=== PATIENT | male | born 1945 | race Caucasian/White ===

== ENCOUNTER → 2017-10-20 | Day surgery (SDC) | payer MEDICARE ==
[2017-10-18 13:22] LABS: BASOPHILS % 0.4 % (0.0-1.0); HEMATOCRIT 30.2 % (38.2-49.6); HEMOGLOBIN 10.6 g/dL (14.0-18.0); LYMPHOCYTES # (AUTO) 0.5 (1.0-3.2); LYMPHOCYTES % 18.1 % (18.0-39.1); MEAN CORPUSCULAR HEMOGLOBIN 34.5 pg (28-32); MEAN CORPUSCULAR HGB CONC 35.1 g/dL (31-35); MEAN CORPUSCULAR VOLUME 98.4 fL (81-99); MONOCYTES # (AUTO) 0.4 (0.2-0.8); MONOCYTES % 15.1 % (4.4-11.3); NEUTROPHILS # (AUTO) 1.8 (2.1-6.9); PLATELET COUNT 50 x10e3/uL (140-360); RED BLOOD COUNT 3.07 x10e6/uL (4.3-5.7); RED CELL DISTRIBUTION WIDTH 14.5 % (11.7-14.4)
[2017-10-18 15:39] LABS: BAND NEUTROPHILS % (MANUAL) 3 %; LYMPHOCYTES % (MANUAL) 11 % (19-48); MONOCYTES % (MANUAL) 13 % (3.4-9.0); NEUTROPHILS % (MANUAL) 70 % (40-74)
[2017-10-18 15:41] LABS: ANISOCYTOSIS SLIGHT; PLATELET ESTIMATE MODERATELY DECREASED; PLATELET MORPHOLOGY COMMENT NORMAL; POIKILOCYTOSIS SLIGHT; RBC MORPHOLOGY COMMENT NORMAL
[~2017-10-20] MED LIST: IBUPROFEN200 MG PO; LIDOCAINE HCL 2% LOCAL 20 ML VIAL INJ SCH
--- NOTE | 2017-10-20 10:08 | History and Physical ---
Barrington Tobin is a 72-year-old white male who was brought to outpatient for bone marrow aspirate and a biopsy. HISTORY OF PAST ILLNESSES: History of multiple myeloma. SOCIAL HISTORY: Noncontributory. FAMILY HISTORY: Noncontributory. ALLERGIES: REPORTED NONE. MEDICATIONS: Please review my EMR. REVIEW OF SYSTEMS HEENT: Normal. CARDIAC: Normal. RESPIRATORY: Normal. GI: Normal. : Normal. MUSCULOSKELETAL: History of multiple myeloma. PHYSICAL EXAMINATION GENERAL: Moderately built male. No adenopathy. Anemic. HEART: Within normal limits. LUNGS: Clear. ABDOMEN: Obese. There is no hepatosplenomegaly. RECTAL: Exam deferred. CENTRAL NERVOUS SYSTEM: Essentially normal. EXTREMITIES: Essentially normal. IMPRESSION: Multiple myeloma. PLAN: Do a bone marrow aspirate and biopsy under local anesthesia using 1% lidocaine without epinephrine. The patient had the right posterior iliac crest aspirate and a biopsy done. There were no complications. The patient tolerated the procedure really well. The patient subsequently was sent to the x-ray department for total body bone survey. Job#: [id number] PEPE
--- NOTE | 2017-10-20 11:22 | Diagnostic Imaging Report ---
PROCEDURE:BONE SURVEY COMP INDICATION:Multiple myeloma COMPARISON:None. FINDINGS: CXR: Irregular mottled appearance of the clavicles; right side greater than left. SKULL: No lytic process identified. C SPINE: Degenerative changes without evidence of a lytic process. Old danna shovelers fracture of C5 and C6. BILATERAL HUMERI: Ill-defined permeative pattern involving the proximal one half of both humeri. BILATERAL HANDS \T\ FOREARMS: Focal lytic process measuring 1.65 cm involving the mid shaft of the left radius. THORACIC SPINE: Bony osteopenia and degenerative changes without evidence of a compressed vertebral body segment or focal lytic lesion. LUMBAR SPINE: Bony osteopenia and degenerative changes without evidence of a compressed vertebral body segment or focal lytic process. AP PELVIS: Degenerative changes about both hips without focal lytic or permeative process. RIGHT FEMUR: Irregular sclerotic lesion in the distal femur has the appearance of a bone infarct. LEFT FEMUR: Two small lesions of the proximal shaft of the left femur below the intertrochanteric line. Small lytic lesions involving the distal shaft of the left femur. Ill-defined lytic permeative process involving the proximal left tibia medial aspect. BOTH TIB/FIB: Ill-defined permeative process involving the proximal portion of the left tibia. BILATERAL FEET: Ill-defined permeative process involving the proximal phalanx of the first digit on the right. CONCLUSION: Multiple lytic and permeative lesions as described above are consistent with myeloma. Wilbert Durbin D.O. Dictated by: Wilbert Durbin D.O. on 10/20/2017 at 11:30 Electronically approved by: Wilbert Durbin D.O. on 10/20/2017 at 11:30
== END | disposition home or self-care (01) ==
LOC: OR 07:21 → EDSTATUS 07:30
PROVIDERS: ATTEND Internal Medicine Medical Oncology
DX: C90.00 Multiple myeloma not having achieved remission (principal); Z01.812 Encounter for preprocedural laboratory examination
CPT/HCPCS: 36415; 77075; 82948; 85025; J2001